=== PATIENT | female | born 1995 | race Caucasian/White ===

== ENCOUNTER 2020-11-22 05:53 | Day surgery (SDC) | payer MEDICAID ==
[2020-11-19 10:33] LABS: BASOPHILS 0.2 % (0-2); EOSINOPHILS 0.9 % (0-7); HEMATOCRIT 44.7 % (36.0-48.0); HEMOGLOBIN 14.4 g/dL (12-16); IMMATURE GRANULOCYTES 0.2 % (0-5); LYMPHOCYTES 14.5 % (15-50); MCH 27.1 pg (26.0-34.0); MCHC 32.2 g/dL (31.0-37.0); MCV 84.2 fL (80.0-100.0); MEAN PLATELET VOLUME 10.9 fL (7.4-10.4); MONOCYTES 6.8 % (2-11); NEUTROPHIL ABS# 8.57 10x3/uL (1.56-6.13); NEUTROPHILS 77.4 % (40-80); RBC 5.31 10x6/uL (4.00-5.40); RDW 14.4 % (11.5-14.5); WBC 11.1 10x3/uL (4.8-10.8)
[2020-11-19 10:40] LABS: PLATELET COUNT 261 10x3/uL (130-400)
[~2020-11-22] VITALS: Ht 167.6 cm; Wt 88.9 kg
[2020-11-22 06:38] VITALS: BP 112/68; Ht 167.6 cm; Wt 88.9 kg
[2020-11-22 06:45] LABS: HCG URINE NEGATIVE (NEGATIVE)
--- NOTE | 2020-11-22 10:28 | NUR ---
0945 MEDICATED FOR PAIN. TOLERATING CRACKERS AND SPRITE. REINFORCED DRESSING TO UMBILICAL AREA. INSTRUCTIONS GIVEN.
--- NOTE | 2020-11-22 10:29 | NUR ---
10AM IV REMOVED AND PRESSURE HELD
--- NOTE | 2020-11-25 07:09 | OP ---
PATIENT NAME: LISANDRO RUIZ MEDICAL RECORD: [id number] :89 [facility] AD[facility]ION DATE: SURGEON: MARCO ANTONIO AHMADI MD DATE OF OPERATION: 11/22/2020 PREOPERATIVE DIAGNOSES: 1. Multiparity, the patient desires permanent sterility. 2. Menorrhagia. POSTOPERATIVE DIAGNOSES: 1. Multiparity, the patient desires permanent sterility. 2. Menorrhagia. PROCEDURE PERFORMED: Laparoscopic tubal ligation via bipolar cautery and hysteroscopy, dilation and curettage and NovaSure endometrial ablation. SURGEON: Marco Antonio Ahmadi. ANESTHESIA: General endotracheal. INTRAVENOUS FLUID: Per anesthesia record. HYSTEROSCOPIC FLUID LOSS: Approximately 100 mL of 0.9 normal saline. SPECIMENS: Included endometrial curettings. FINDINGS: 1. Grossly normal-appearing uterus, fallopian tubes and ovaries. 2. Grossly normal-appearing external genitalia and cervix. 3. Proliferative-appearing endometrium. COMPLICATIONS: None apparent. PROCEDURE IN DETAIL: The patient was taken to the operating room where general anesthesia was achieved without any difficulty. The patient was then prepped and draped in normal sterile fashion in the dorsal lithotomy position in the [facility]. The bladder was drained of approximately 50 mL of clear yellow urine and a sponge stick was placed into the vagina for uterine elevation. Following draping, a 5-mm incision was made infraumbilically and then intraperitoneal space was entered using the bladeless trocar under direct visualization with a laparoscope. The introducer was removed and intraperitoneal placed. Intraperitoneal placement was confirmed with the scope. The patient was then insufflated and opening pressure was found to be less than 8 mmHg. The patient was then insufflated and a second 5-mm skin incision was made approximately 4 cm superior to the pubic symphysis in the midline. A 5-mm bladeless trocar was again used to enter the intraperitoneal space under direct visualization of the laparoscope. The survey of the abdomen and pelvis was then performed. Attention was then turned to the mid-section of each fallopian tube, which were identified by identifying the distal fimbriated portion. A tubal ligation was performed by using the bipolar cautery Vee to completely desiccate approximately 5-6 cm portion in the mid-section of the tube. This was performed bilaterally with good hemostasis noted. Pressure was then decreased and good hemostasis was noted from all surgical sites. The patient was then fully desufflated and the trocars were removed. The skin incisions were repaired with 3-0 Vicryl in an interrupted fashion. Sponge stick was then OPERATIVE REPORT [id number] RUIZ,LISANDRO removed from the vagina and the Graves speculum placed into the vagina. A single tooth tenaculum was placed on the anterior lip of the cervix and uterus sounded to approximately 9.5 cm. The patient was dilated to approximately 6-mm, at which point the hysteroscope was introduced into the uterus. Survey of the uterine cavity was performed and a fractional curettage of all 4 quadrants were performed. The hysteroscope was then removed and further dilation of approximately 9 mm was performed. The NovaSure device was then calibrated to a length of 6 cm and a width of 3.5 cm. NovaSure device was inserted per protocol. Vacuum precheck was correct x2 and a burn cycle of 57 seconds was achieved. Following the burn cycle, the NovaSure unit collar was retracted backwards from the cervix and the device was unlocked and the NovaSure was removed using the bow and arrow technique from the cervix. Good hemostasis was noted at that time. Speculum was removed. The patient was transported to postanesthesia recovery stable without incident. TRANSINT:[id number] Voice Confirmation ID: [id number] DOCUMENT ID: [id number] MARCO ANTONIO AHMADI MD at 0709 CC: [id number] DICTATION DATE: 11/22/20 0846 MUSIC ADAPTER: 11/22/20 1216 [facility] 11/22/20 [id number] [place] [address]
== END 2020-11-22 11:00 | disposition home or self-care (01) ==
LOC: D.OPS 05:53
PROVIDERS: ATTEND Obstetrics & Gynecology
DX: Z01.419 Encounter for gynecological examination (general) (routine) without abnormal findings (principal); Z64.1 Problems related to multiparity; Z30.2 Encounter for sterilization; N92.0 Excessive and frequent menstruation with regular cycle

== ENCOUNTER 2020-11-28 12:13 | Emergency (ER) | payer MEDICAID ==
[2020-11-22 06:38] VITALS: BMI 31.7
== END 2020-11-28 13:29 | disposition left against medical advice (07) ==
LOC: D.ER 12:13
DX: R10.9 Unspecified abdominal pain (principal)